=== PATIENT | male | born 1995 | race Caucasian/White ===

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

== ENCOUNTER 2017-04-15 15:07 | Emergency (ER) | payer SELFPAY ==
[2017-04-15] MEDS ORDERED: KETOROLAC 30 MG/ML 1 ML VIAL IVP STA (15:52)
--- NOTE | 2017-04-15 15:54 | ED ---
Chest Pain HPI - General Chief Complaint: Chest Pain Stated Complaint: Chest Pain Time Seen by Provider: 04/15/17 15:44 Source: patient Mode of arrival: ambulatory Limitations: no limitations - History of Present Illness Initial Comments: Is a 21-year-old male who presents emergency department for chest pain. He states it started about one week ago and has been constant. He states it's worse with coughing and movement and lifting heavy things. He states is located in his anterior chest and radiates around to his back. He does not feel like a ripping or tearing sensation. He states that it has been constant. He states he has been coughing for the last month. He has not been taking anything for the pain at home. He became concerned when the pain is not going away so decided come emergency department. Denies any other medical problems. No history DVT or PE. This patient is low risk for PE because he/she has met the following criteria Age <50 years HR <100 bpm Room Air SpO2 >95% No prior DVT/PE No recent trauma/surgery No hemoptysis No exogenous estrogen use No clinical signs of DVT - Related Data Previous Rx's Medication Instructions Recorded Naproxen [EC-Naprosyn] 500 mg PO BID #30 tablet. 04/15/17 Allergies Allergy/AdvReac Type Severity Reaction Status Date / Time No Known Allergies Allergy Verified 04/15/17 16:07 Review of Systems ROS Statement: Those systems with pertinent positive or pertinent negative responses have been documented in the HPI. ROS Other: All systems not noted in ROS Statement are negative. EKG Findings - EKG Comments: EKG Findings:: EKG showing sinus bradycardia with a rate of 42. No abnormal ST segment changes or T-wave inversion. QTC is 332. Other intervals normal. No ectopy. Past Medical History Past Medical History: No Reported History History of Any Multi-Drug Resistant Organisms: None Reported Past Surgical History: No Surgical Hx Reported Past Psychological History: No Psychological Hx Reported Smoking Status: Current every day smoker Past Alcohol Use History: Occasional Past Drug Use History: None Reported General Exam - General Exam Comments Initial Comments: Constitutional: Awake alert Appears comfortable Head: Normocephalic atraumatic Eyes: no conjunctival injection No scleral icterus EOMI Neck: No JVD Supple Heart: Regular rate rhythm normal S1-S2 no murmurs Lungs: Clear to auscultation bilaterally No wheezing No rales, tenderness to palpation the anterior chest wall along the sternocostal joints Abdomen: Soft nondistended nontender Extremities: Non edematous DP pulses intact Radial pulses intact Neuro: A&Ox3 No focal neurologic deficits Psych: Appropriate mood and affect Limitations: no limitations Course Vital Signs 04/15/17 04/15/17 04/15/17 15:16 16:29 17:01 Temperature 97.5 F L 98 F Pulse Rate 52 L 51 L 53 L Respiratory 18 16 16 Rate Blood Pressure 138/72 115/56 106/63 O2 Sat by Pulse 100 97 95 Oximetry Chest Pain MDM - MDM Is a 21-year-old male who came in for chest pain. His symptoms were consistent with chest wall pain. He was reproducible on examination. He's been coughing a lot over the last month. He has no risk factors for PE and was perk negative. EKG did reveal marked sinus bradycardia however left her lites were normal. The patient had no symptoms when I sit him up at bedside and had him walk around. I told him that he is follow up with his primary doctor for further evaluation of this however is a symptomatically at this time. Told to return if he developed any lightheadedness or syncope. Some home on Naprosyn for his chest wall discomfort. Can return for any other worsening or changing symptoms. All questions were answered. Disposition Clinical Impression: Bradycardia, Costochondral chest pain Disposition: HOME SELF-CARE Condition: Stable Instructions: Costochondritis (ED), Bradycardia (ED) Prescriptions: Naproxen [EC-Naprosyn] 500 mg PO BID #30 tablet. Referrals: Jamie Tirado MD [Primary Care Provider] - 1-2 days
--- NOTE | 2017-04-15 16:08 | XR ---
EXAMINATION TYPE: XR chest 2V DATE OF EXAM: 04/15/2017 COMPARISON: NONE INDICATION: Chest pain TECHNIQUE: Frontal and lateral views of the chest are obtained. FINDINGS: The heart size is normal. The pulmonary vasculature is normal. The lungs are clear. IMPRESSION: 1. No acute pulmonary process.
[2017-04-15 16:30] VITALS: RESP 16
[2017-04-15 16:38] LABS: ALT 30 U/L (21-72); AST 32 U/L (17-59); Albumin 4.6 g/dL (3.5-5.0); Alkaline Phosphatase 67 U/L (38-126); Anion Gap 11 mmol/L; Blood Urea Nitrogen 11 mg/dL (9-20); Carbon Dioxide 27 mmol/L (22-30); Chloride 105 mmol/L (98-107); Glucose 77 mg/dL (74-99); Potassium 4.5 mmol/L (3.5-5.1); Sodium 143 mmol/L (137-145); Total Bilirubin 0.4 mg/dL (0.2-1.3); Total Protein 7.2 g/dL (6.3-8.2)
[2017-04-15 17:03] VITALS: BP 106/63; PULSE 53; TEMP 98
== END 2017-04-15 17:02 | disposition home or self-care (01) ==
LOC: EC 15:07
DX: R00.1 Bradycardia, unspecified (principal); R07.1 Chest pain on breathing; F17.200 Nicotine dependence, unspecified, uncomplicated
CPT/HCPCS: 36415; 93005; 80053; 71046; 99285; 96374; J1885

== ENCOUNTER 2018-10-01 00:35 | Emergency (ER) | payer OTHER ==
--- NOTE | 2018-10-01 03:32 | ED ---
Psych HPI - General Chief Complaint: Psychiatric Symptoms Stated Complaint: Mental Health Time Seen by Provider: 10/01/18 01:34 Source: patient, family, police Mode of arrival: ambulatory - History of Present Illness Initial Comments: This patient is 22-year-old man brought to have psychiatric evaluation after he had called and said he may be having some suicidal thoughts. The patient states that he had been drinking tonight, and also using what he believes is LSD. He states that he was then not able to contact his girlfriend and he really feels he needs someone to talk to. He states he has had some suicidal thoughts but does not have a plan and is not feeling actively suicidal. Complaint: suicidal ideation, other -: hour(s) Associated Psychiatric Symptoms: depression, suicidal ideation History of same: No Quality: intermittent Improves With: none Worsens With: drug use Context: significant life stressor Associated Symptoms: denies other symptoms - Related Data Previous Rx's Medication Instructions Recorded Naproxen [EC-Naprosyn] 500 mg PO BID #30 tablet. 04/15/17 Allergies Allergy/AdvReac Type Severity Reaction Status Date / Time No Known Allergies Allergy Verified 10/01/18 00:47 Review of Systems ROS Statement: Those systems with pertinent positive or pertinent negative responses have been documented in the HPI. ROS Other: All systems not noted in ROS Statement are negative. Respiratory: Denies: cough, dyspnea Cardiovascular: Denies: chest pain, palpitations, syncope Gastrointestinal: Denies: abdominal pain, vomiting, diarrhea Musculoskeletal: Denies: back pain Neurological: Denies: headache Psychiatric: Reports: anxiety, suicidal thoughts. Denies: auditory hallucinations, visual hallucinations, homicidal thoughts Past Medical History Past Medical History: No Reported History History of Any Multi-Drug Resistant Organisms: None Reported Past Surgical History: No Surgical Hx Reported Past Psychological History: Anxiety, Depression Smoking Status: Current every day smoker Past Alcohol Use History: Occasional Past Drug Use History: Marijuana General Exam Limitations: no limitations General appearance: alert, in no apparent distress, appears intoxicated Head exam: Present: atraumatic, normocephalic Eye exam: Present: normal appearance. Absent: scleral icterus, conjunctival injection ENT exam: Present: normal oropharynx Respiratory exam: Present: normal lung sounds bilaterally. Absent: respiratory distress, wheezes, rales, rhonchi, stridor Cardiovascular Exam: Present: regular rate, normal rhythm, normal heart sounds. Absent: systolic murmur, diastolic murmur, rubs, gallop GI/Abdominal exam: Present: soft. Absent: distended, tenderness, guarding, rebound, mass Extremities exam: Present: normal inspection, normal capillary refill Neurological exam: Present: alert, oriented X3 Psychiatric exam: Present: manic, suicidal ideation. Absent: depressed, agitated, anxious, flat affect, homicidal ideation Skin exam: Present: warm, dry, intact, normal color. Absent: rash Course Vital Signs 10/01/18 10/01/18 00:44 03:31 Temperature 98.5 F 96.8 F L Pulse Rate 98 76 Respiratory 20 18 Rate Blood Pressure 132/77 129/79 O2 Sat by Pulse 97 95 Oximetry Medical Decision Making - Medical Decision Making Patient is 22-year-old man expressing some mild suicidal ideation. He is seen by EPS, and he does contract for safety. He is given outpatient follow-up information and discussed return parameters. Counseled to avoid using alcohol and abusing substances. Disposition Clinical Impression: Drug-induced psychotic disorder Disposition: HOME SELF-CARE Condition: Fair Instructions (If sedation given, give patient instructions): Suicide Prevention (ED) Is patient prescribed a controlled substance at d/c from ED?: No Referrals: None,Stated [Primary Care Provider] - 1-2 days
[2018-10-01 03:33] VITALS: BP 129/79; PULSE 76; RESP 18; TEMP 96.8
== END 2018-10-01 03:45 | disposition home or self-care (01) ==
LOC: EC 00:35
DX: F19.159 Other psychoactive substance abuse with psychoactive substance-induced psychotic disorder, unspecified (principal); R45.851 Suicidal ideations; F17.200 Nicotine dependence, unspecified, uncomplicated; Z71.51 Drug abuse counseling and surveillance of drug abuser; Z71.41 Alcohol abuse counseling and surveillance of alcoholic; Z72.89 Other problems related to lifestyle
CPT/HCPCS: 82075; 99285

== ENCOUNTER 2018-12-21 13:47 | Emergency (ER) | payer OTHER ==
[2018-12-21 14:16] VITALS: BP 127/76; PULSE 98; RESP 18; TEMP 98.5
--- NOTE | 2018-12-21 14:53 | ED ---
Male Urogenital HPI - General Chief complaint: Urogenital Stated complaint: Male Time Seen by Provider: 12/21/18 14:31 Source: patient Mode of arrival: ambulatory Limitations: no limitations - History of Present Illness Initial comments: 23-year-old male presents emergency department for evaluation of left scrotal swelling 4 years. Patient states his history of hydrocele he was seeing a urologist [facility] [place] about 4 years ago. Patient states he was told he needed procedure for his hydrocele. Patient states he had issues with insurance and never followed up. Patient states that he was unable to take off work. Patient states he has had swelling of the left testicle since. Patient states she is concerned about the swelling he wants to make sure he does not have cancer. Patient states the testicle so large is causing pain in his abdomen including mild discomfort. Patient denies any severe acute pain. Patient denies any changes in the pain states "ongoing for years" patient denies dysuria or urgency frequency hematuria or back pain. Patient denies any recent weight loss. Remaining review of system negative. Upon arrival patient appears well no signs of acute distress. - Related Data Home Medications Medication Instructions Recorded Confirmed No Known Home Medications 12/21/18 12/21/18 Allergies Allergy/AdvReac Type Severity Reaction Status Date / Time No Known Allergies Allergy Verified 12/21/18 14:44 Review of Systems ROS Statement: Those systems with pertinent positive or pertinent negative responses have been documented in the HPI. ROS Other: All systems not noted in ROS Statement are negative. Past Medical History Past Medical History: No Reported History History of Any Multi-Drug Resistant Organisms: None Reported Past Surgical History: No Surgical Hx Reported Past Psychological History: Anxiety, Depression Smoking Status: Current every day smoker Past Alcohol Use History: Occasional Past Drug Use History: Marijuana General Exam - General Exam Comments Initial Comments: General: The patient is awake and alert, in no distress, and does not appear acutely ill. Eye: Pupils are equal, round and reactive to light, extra-ocular movements are intact. No nystagmus. There is normal conjunctiva bilaterally. No signs of icterus. Ears, nose, mouth and throat: There are moist mucous membranes and no oral lesions. Neck: The neck is supple, there is no tenderness or JVD. Cardiovascular: There is a regular rate and rhythm. No murmur, rub or gallop is appreciated. Respiratory: Lungs are clear to auscultation, respirations are non-labored, breath sounds are equal. No wheezes, stridor, rales, or rhonchi. Gastrointestinal: Soft, non-distended, non-tender abdomen without masses or organomegaly noted. There is no rebound or guarding present. No CVA tenderness. Upon physical examination there is obvious enlargement of the left testicle. No palpable inguinal hernia. Patient has no evidence of redness or mass rapid tenderness. No appreciable masses. Genitalia examination was performed with emanuel stanton in bathroom due to patient being a hallway bed initially. Musculoskeletal: Normal ROM, no tenderness. Strength 5/5. Sensation intact. Pulses equal bilaterally 2+. Neurological: A&O x 3. CN II-XII intact, There are no obvious motor or sensory deficits. Coordination appears grossly intact. Speech is normal. Skin: Skin is warm and dry and no rashes or lesions are noted. Psychiatric: Cooperative, appropriate mood & affect, normal judgment. Limitations: no limitations Course Vital Signs 12/21/18 14:12 Temperature 98.5 F Pulse Rate 98 Respiratory 18 Rate Blood Pressure 127/76 O2 Sat by Pulse 97 Oximetry Medical Decision Making - Medical Decision Making 23-year-old male presenting for evaluation of scrotal swelling 4 years. Patient concerned of cancer. Denies dysuria urgency frequency or hematuria. Patient does admit to lower abdominal discomfort ongoing since the testicles and swelling. Patient has any acute changes. Patient states he's become paranoid about the issue. States he cannot live like this. Ultrasound revealed hydrocele. No other K processing at this time. Ultrasound results were discussed. As we have patient's urinalysis. Patient left prior to completion of care, and urinalysis results. Urinalysis results are unremarkable. - Lab Data Lab Results 12/21/18 Range/Units 15:00 Urine Color Yellow Urine Appearance Clear (Clear) Urine pH 6.0 (5.0-8.0) Ur Specific [place] 1.031 (1.001-1.035) Urine Protein Trace H (Negative) Urine Glucose (UA) Negative (Negative) Urine Ketones Negative (Negative) Urine Blood Negative (Negative) Urine Nitrite Negative (Negative) Urine Bilirubin Negative (Negative) Urine Urobilinogen 4.0 (<2.0) mg/dL Ur Leukocyte Esterase Negative (Negative) Disposition Clinical Impression: Hydrocele Disposition: Left Against Medical Advice Condition: Undetermined Is patient prescribed a controlled substance at d/c from ED?: No Referrals: None,Stated [Primary Care Provider] - 1-2 days Time of Disposition: 16:00
--- NOTE | 2018-12-21 15:53 | US ---
EXAMINATION TYPE: US scrotum with doppler. Grayscale and color Doppler Duplex imaging performed of t eusebio scrotum. DATE OF EXAM: 12/21/2018 COMPARISON: NONE CLINICAL HISTORY: testicular pain and swelling. Left testicle edema x 2 years. EXAM MEASUREMENTS: TESTICLES: Right Testicle: 5.2 x 2.6 x 3.1 cm Left Testicle: 4.1 x 3.0 x 2.9 cm EPIDIDYMIS HEAD: Right Epididymis: Not well visualized.cm Left Epididymis: 1.1 x 1.5 x 1.8 cm Doppler performed to assess for testicular vascularity; good bilateral color flow and waveforms are s een. There is no evidence of testicular torsion. Presence of hydroceles: Yes left. Presence of varicoceles: Unable to access due to large hydrocele. IMPRESSION: Large left hydrocele appears overall uncomplicated without internal septations. No sonogr aphic evidence of acute testicular torsion on the examination.
[2018-12-21 17:36] LABS: Appearance,Urine Clear (Clear); Bilirubin,Urine Negative (Negative); Blood,Urine Negative (Negative); Color,Urine Yellow; Glucose,Urine (UA) Negative (Negative); Ketones,Urine Negative (Negative); Leukocyte Esterase,Urine Negative (Negative); Nitrite,Urine Negative (Negative); Protein,Urine Trace (Negative); Specific Gravity,Urine 1.031 (1.001-1.035)
== END 2018-12-21 17:22 | disposition left against medical advice (07) ==
LOC: EC 13:47
DX: N43.3 Hydrocele, unspecified (principal); N50.812 Left testicular pain; F17.200 Nicotine dependence, unspecified, uncomplicated
CPT/HCPCS: 76870; 81003; 93975; 99284

== ENCOUNTER 2019-10-27 15:50 | Emergency (ER) | payer OTHER ==
[2019-10-27 16:06] VITALS: BP 123/81; PULSE 70; TEMP 98.3
--- NOTE | 2019-10-27 16:38 | ED ---
General Adult HPI - General Chief complaint: Skin/Abscess/Foreign Body Stated complaint: lump on chin Time Seen by Provider: 10/27/19 16:08 Source: patient, RN notes reviewed, old records reviewed Mode of arrival: ambulatory Limitations: no limitations - History of Present Illness Initial comments: 23-year-old male patient received chief complaint of bump underneath his chin he noticed earlier today. Patient also has a large hydrocele on his left scrotum reports he believes he has one on the right side. Denies any trauma. Doesn't dysuria denies any history of STI. Denies any other complaints. Systemic: Pt denies fatigue, fever/chills, rash. Pt denies weakness, night sweats, weight loss. Neuro: Pt denies headache, visual disturbances, syncope or pre-syncope. HEENT: Pt denies ocular discharge or irritation, otalgia, rhinorrhea, pharyngitis or notable lymphadenopathy. Cardiopulmonary: Pt denies chest pain, SOB, heart palpitations, dyspnea on exertion. Abdominal/GI: Pt denies abdominal pain, n/v/d. : Pt denies dysuria, burning w/ urination, frequency/urgency. Denies new onset urinary or bowel incontinence. MSK: Pt denies myalgia, loss of strength or function in extremities. Neuro: Pt denies new onset weakness, paresthesias. - Related Data Home Medications Medication Instructions Recorded Confirmed No Known Home Medications 12/21/18 10/27/19 Allergies Allergy/AdvReac Type Severity Reaction Status Date / Time No Known Allergies Allergy Verified 10/27/19 18:20 Review of Systems ROS Statement: Those systems with pertinent positive or pertinent negative responses have been documented in the HPI. ROS Other: All systems not noted in ROS Statement are negative. Past Medical History Past Medical History: No Reported History History of Any Multi-Drug Resistant Organisms: None Reported Past Surgical History: No Surgical Hx Reported Past Psychological History: Anxiety, Depression Smoking Status: Current some day smoker Past Alcohol Use History: Occasional Past Drug Use History: Marijuana General Exam - General Exam Comments Initial Comments: Constitutional: NAD, AOX3, Pt has pleasant affect. HEENT: NC/AT, trachea midline, neck supple, small possible submental lymph node is noted underneath midline aspect of chin. It is nontender and mobile. External ears appear normal, without discharge. Mucous membranes moist. There is no scleral icterus. No pallor noted. Cardiopulmonary: RRR, no murmurs, rubs or gallops, no JVD noted. Lungs CTAB in anterior and posterior arango. No peripheral edema. Abdominal exam: Abdomen soft and non-distended. Abdomen non-tender to palpation in all 4 quadrants. No hepatosplenomegaly. No ecchymosis Neuro: CN II-XII grossly intact. No nuchal rigidity. No raccon eyes, no reyes sign, no hemotympanum. No cervical spinal tenderness. MSK: Full active ROM in upper and lower extremities, 5/5 stregnth. : Scrotum nontender testicles nontender bilaterally. Hydrocele are noted. No skin changes. Limitations: no limitations Course Vital Signs 10/27/19 10/27/19 16:04 16:55 Temperature 98.3 F Pulse Rate 70 Respiratory 18 16 Rate Blood Pressure 123/81 O2 Sat by Pulse 99 Oximetry Medical Decision Making - Medical Decision Making 23-year-old male patient presents to ED for evaluation of bump under chin. Patient vital signs are stable, afebrile. Pt is also concerned about possible hydrocele on right scrotum. Physical exam displayed small possible submental lymph node. Scrotum nontender. Scrotum ultrasound negative for torsion epididymitis. Moderate left hydrocele minimal right hydrocele no other findings. Plain film of mandible was negative. Patient signed out AGAINST MEDICAL ADVICE prior to results of imaging. Risks were discussed which he verbalizes understanding. I did call him with results of ultrasound. Patient was provided written information for primary care provider Dr. Ko and urologist Dr. Cruz for follow up and will return for worsening symptoms. - Lab Data Lab Results 10/27/19 Range/Units 17:02 Urine Color Yellow Urine Appearance Clear (Clear) Urine pH 6.0 (5.0-8.0) Ur Specific [place] 1.035 (1.001-1.035) Urine Protein 1+ H (Negative) Urine Glucose (UA) Negative (Negative) Urine Ketones Negative (Negative) Urine Blood Negative (Negative) Urine Nitrite Negative (Negative) Urine Bilirubin Negative (Negative) Urine Urobilinogen 3.0 (<2.0) mg/dL Ur Leukocyte Esterase Negative (Negative) Urine RBC <1 (0-5) /hpf Urine WBC 2 (0-5) /hpf Ur Squamous Epith Cells <1 (0-4) /hpf Calcium Oxalate Crystal Occasional H (None) /hpf Amorphous Sediment Rare H (None) /hpf Hyaline Casts 3 H (0-2) /lpf Urine Mucus Few H (None) /hpf Disposition Clinical Impression: Hydrocele Disposition: Left Against Medical Advice Condition: Undetermined Is patient prescribed a controlled substance at d/c from ED?: No Referrals: Jamie Tirado MD [Primary Care Provider] - 1-2 days
[2019-10-27 16:59] VITALS: RESP 16
[2019-10-27 17:26] LABS: Amorphous Sediment,Urine Rare /hpf; Appearance,Urine Clear (Clear); Bilirubin,Urine Negative (Negative); Blood,Urine Negative (Negative); Calcium Oxalate Crystals,Urine Occasional /hpf; Color,Urine Yellow; Glucose,Urine (UA) Negative (Negative); Hyaline Casts,Urine 3 /lpf (0-2); Ketones,Urine Negative (Negative); Leukocyte Esterase,Urine Negative (Negative); Mucus,Urine Few /hpf; Nitrite,Urine Negative (Negative); Protein,Urine 1+ (Negative); RBC,Urine <1 /hpf (0-5); Specific Gravity,Urine 1.035 (1.001-1.035); Squamous Epithelial Cell,Urine <1 /hpf (0-4); WBC,Urine 2 /hpf (0-5)
--- NOTE | 2019-10-27 18:54 | US ---
EXAMINATION TYPE: US scrotum with doppler. Grayscale and color Doppler Duplex imaging performed of susan kaplan scrotum. DATE OF EXAM: 10/27/2019 COMPARISON: US 2019 CLINICAL HISTORY: Scrotal swelling. Pain x 1 week. EXAM MEASUREMENTS: TESTICLES: Right Testicle: 4.9 x 2.9 x 2.6 cm Left Testicle: 4.8 x 2.9 x 3.1 cm EPIDIDYMIS HEAD: Right Epididymis: 1.1 x 0.7 x 1.1 cm Left Epididymis: 1.1 x 1.7 x 1.4 cm Doppler performed to assess for testicular vascularity; bilateral color flow and waveforms are seen Presence of hydroceles: Right: 2.4 x 0.7 x 0.4 cm. Left greater than right and measures approximatel y: 9.7 x 5.9 x 5.6 cm. Presence of varicoceles: Vessels on right side measure 2.3 mm. Unable to clearly assess left side. IMPRESSION: 1. Negative for testicular torsion or epididymitis. 2. Moderate left hydrocele and minimal right hydrocele. No other findings.
--- NOTE | 2019-10-27 19:36 | XR ---
PROCEDURE: XR mandible complete - 5V DATE AND TIME: 10/27/2019 6:26 PM CLINICAL INDICATION: Lump under chin/pain, bony projection TECHNIQUE: Department protocol COMPARISON: None FINDINGS: There is no fracture or malalignment. There are no focal bony findings. The soft tissues ar e unremarkable. IMPRESSION: No acute or focal radiographic process.
[2019-10-31 14:00] LABS: N. gonorrhoeae,PCR Negative (Neg,Equiv); Neisseria Source Urine
[2019-10-31 14:02] LABS: C. trachomatis,PCR Negative (Neg,Equiv); Chlamydia trachomatis Source Urine
== END 2019-10-27 18:30 | disposition left against medical advice (07) ==
LOC: EC 15:50
DX: N43.3 Hydrocele, unspecified (principal); R22.0 Localized swelling, mass and lump, head; F17.200 Nicotine dependence, unspecified, uncomplicated; Z53.29 Procedure and treatment not carried out because of patient's decision for other reasons
CPT/HCPCS: 70110; 76870; 81001; 87491; 87591; 93975; 99284

== ENCOUNTER 2020-03-29 15:55 | Emergency (ER) | payer OTHER ==
[2020-03-29 16:02] VITALS: BP 122/59; PULSE 64; RESP 16; TEMP 98.3
[2020-03-29] MEDS ORDERED: DIPH,PERTUS(ACELL)TETVAC-LF 0.5 ML VIAL IM ONE (16:11)
[2020-03-29] MEDS: CIPROFLOXACIN HCL 500 MG TAB PO STA ×2 (16:25→16:43)
[2020-03-29] MEDS ORDERED: LEVOFLOXACIN 750 MG TAB PO STA (16:37)
--- NOTE | 2020-03-29 16:43 | ED ---
General Adult HPI - General Chief complaint: Skin/Abscess/Foreign Body Stated complaint: Stepped on aristides nail Time Seen by Provider: 03/29/20 16:09 Source: patient, RN notes reviewed, old records reviewed Mode of arrival: ambulatory Limitations: no limitations - History of Present Illness Initial comments: 24-year-old male patient ED for evaluation of stepping on a nail through the sole of his left shoe yesterday. Tetanus needs to be updated. Ambulatory. Denies any other complaints. Systemic: Pt denies fatigue, fever/chills, rash. Pt denies weakness, night sweats, weight loss. Neuro: Pt denies headache, visual disturbances, syncope or pre-syncope. HEENT: Pt denies ocular discharge or irritation, otalgia, rhinorrhea, pharyngitis or notable lymphadenopathy. Cardiopulmonary: Pt denies chest pain, SOB, heart palpitations, dyspnea on exertion. Abdominal/GI: Pt denies abdominal pain, n/v/d. : Pt denies dysuria, burning w/ urination, frequency/urgency. Denies new onset urinary or bowel incontinence. MSK: Pt denies myalgia, loss of strength or function in extremities. Neuro: Pt denies new onset weakness, paresthesias. - Related Data Previous Rx's Medication Instructions Recorded Levofloxacin [Levaquin] 750 mg PO DAILY 6 Days #6 tab 03/29/20 Allergies Allergy/AdvReac Type Severity Reaction Status Date / Time No Known Allergies Allergy Verified 03/29/20 16:02 Review of Systems ROS Statement: Those systems with pertinent positive or pertinent negative responses have been documented in the HPI. ROS Other: All systems not noted in ROS Statement are negative. Past Medical History Past Medical History: No Reported History History of Any Multi-Drug Resistant Organisms: None Reported Past Surgical History: No Surgical Hx Reported Past Psychological History: Anxiety, Depression Smoking Status: Current some day smoker Past Alcohol Use History: Occasional Past Drug Use History: Marijuana General Exam - General Exam Comments Initial Comments: Constitutional: NAD, AOX3, Pt has pleasant affect. HEENT: NC/AT, trachea midline, neck supple, no lymphadenopathy. External ears appear normal, without discharge. Mucous membranes moist. Eyes PERRLA, EOM intact. There is no scleral icterus. No pallor noted. Cardiopulmonary: RRR, no murmurs, rubs or gallops, no JVD noted. Lungs CTAB in anterior and posterior arango. No peripheral edema. Abdominal exam: Abdomen soft and non-distended. Abdomen non-tender to palpation in all 4 quadrants. Bowel sounds active in LLQ. No hepatosplenomegaly. No ecchy mosis Neuro: CN II-XII grossly intact. No nuchal rigidity. MSK: Small puncutre noted on bottom of left foot. No skin changes. Full active ROM in upper and lower extremities, 5/5 stregnth. Limitations: no limitations Course Vital Signs 03/29/20 15:59 Temperature 98.3 F Pulse Rate 64 Respiratory 16 Rate Blood Pressure 122/59 O2 Sat by Pulse 98 Oximetry Medical Decision Making - Medical Decision Making 24-year-old male patient ED for evaluation of nail puncture injury to the left foot. Tetanus was updated. Physical exam displayed a small puncture. Patient reports that he did clean this. Patient will be placed on antibiotics and will be discharged with return precautions and outpatient follow-up. Case discussed with Dr. Schilling. Disposition Clinical Impression: Puncture wound of skin from metal nail Disposition: HOME SELF-CARE Condition: Stable Instructions (If sedation given, give patient instructions): Cellulitis (ED) Additional Instructions: Follow up with PCP tomorrow. Take antibiotics as directed. Return to ED with any worsening symptoms. Prescriptions: Levofloxacin [Levaquin] 750 mg PO DAILY 6 Days #6 tab Is patient prescribed a controlled substance at d/c from ED?: No Referrals: Jamie Tirado MD [Primary Care Provider] - 1-2 days
== END 2020-03-29 16:52 | disposition home or self-care (01) ==
LOC: EC 15:55
DX: S91.332A Puncture wound without foreign body, left foot, initial encounter (principal); Z23 Encounter for immunization; F17.200 Nicotine dependence, unspecified, uncomplicated; W45.0XXA Nail entering through skin, initial encounter; Y92.89 Other specified places as the place of occurrence of the external cause
CPT/HCPCS: 90471; 90715; 99283

== ENCOUNTER → 2023-03-16 | Outpatient (CLI) | payer OTHER ==
--- NOTE | 2023-03-17 07:35 | CA ---
Transthoracic Echo Report Name: Smooth Williamosn Age: 27 Gender: M : 1995 Exam Date: 03/16/2023 14:43 Exam Location: [facility] Ht (in): 69 Wt (lb): 146 Ordering Physician: Jamie Tirado MD Attending/Referring Phys: Jamie Tirado MD [employer] Engineer Burton Farley Procedure CPT: Indications: 24 HR MONITOR/R07.9 CHEST PAIN R00.2 PALPITATIONS Cardiac Hx: Technical Quality: Good Contrast 1: Total Dose (mL): Contrast 2: Total Dose (mL): MEASUREMENTS (Male / Female) Normal Values 2D ECHO LV Diastolic Diameter PLAX 5.0 cm 4.2 - 5.9 / 3.9 - 5.3 cm LV Systolic Diameter PLAX 3.3 cm IVS Diastolic Thickness 0.7 cm 0.6 - 1.0 / 0.6 - 0.9 cm LVPW Diastolic Thickness 1.0 cm 0.6 - 1.0 / 0.6 - 0.9 cm LV Relative Wall Thickness 0.3 RV Internal Dim ED PLAX 2.9 cm LV Diastolic Volume MOD BP 87.7 cm??? 67 - 155 / 56 - 104 cm??? LV Systolic Volume MOD BP 40.4 cm??? 22 - 58 / 19 - 49 cm??? LV Ejection Fraction MOD BP 53.9 % >= 55 % LV Cardiac Index MOD BP 1370.3 cm???/min???m??? LV Diastolic Volume MOD 4C 81.4 cm??? LV Systolic Volume MOD 4C 48.9 cm??? LV Ejection Fraction MOD 4C 39.9 % LV Cardiac Index MOD 4C 942.7 cm???/min???m??? LV Diastolic Length 4C 7.9 cm LV Systolic Length 4C 7.4 cm LV Diastolic Volume MOD 2C 89.0 cm??? LV Systolic Volume MOD 2C 30.2 cm??? LV Ejection Fraction MOD 2C 66.1 % LV Cardiac Index MOD 2C 1704.6 cm???/min???m??? LV Diastolic Length 2C 7.4 cm LV Systolic Length 2C 6.6 cm LA Volume 35.2 cm??? 18 - 58 / 22 - 52 cm??? LA Volume Index 19.6 cm???/m??? 16 - 28 cm???/m??? DOPPLER AV Peak Velocity 98.0 cm/s AV Peak Gradient 3.8 mmHg LVOT Peak Velocity 83.5 cm/s LVOT Peak Gradient 2.8 mmHg LVOT Velocity Time Integral 15.4 cm MV Peak Velocity 107.3 cm/s MV Peak Gradient 4.6 mmHg MV Mean Velocity 49.7 cm/s MV Mean Gradient 1.3 mmHg MV Velocity Time Integral 35.2 cm Mitral E Point Velocity 72.4 cm/s Mitral A Point Velocity 53.5 cm/s Mitral E to A Ratio 1.4 MV Deceleration Time 171.4 ms MV E' Velocity 14.4 cm/s Mitral E to MV E' Ratio 5.0 TR Peak Velocity 227.9 cm/s TR Peak Gradient 20.8 mmHg Right Ventricular Systolic Press 25.9 mmHg PV Peak Velocity 87.4 cm/s PV Peak Gradient 3.1 mmHg FINDINGS Left Ventricle Normal LV size and wall thickness. Left ventricular ejection fraction is estimated at 50-55 %. Left ventricular systolic function borderline normal Right Ventricle Normal right ventricular size. Right Atrium Normal right atrial size. Left Atrium Normal left atrial size. Mitral Valve Structurally normal mitral valve. Trace mitral regurgitation. Aortic Valve Trileaflet aortic valve. No aortic valve stenosis or regurgitation. Tricuspid Valve Structurally normal tricuspid valve. Mild TR. Pulmonic Valve Structurally normal pulmonic valve. Pericardium Normal pericardium. Aorta Normal size aortic root and proximal ascending aorta. CONCLUSIONS 1. Borderline normal left ventricular systolic function 2. Mild tricuspid with trace mitral regurgitation and no evidence of pulmonary hypertension Previewed by: Dr. Calixto Astorga MD (Electronically Signed) Final Date: 17 March 2023 07:35
== END | disposition home or self-care (01) ==
LOC: RADECHMAIN 13:40
PROVIDERS: ATTEND Family Medicine
DX: I08.1 Rheumatic disorders of both mitral and tricuspid valves (principal); R07.9 Chest pain, unspecified; R00.2 Palpitations
CPT/HCPCS: 93306